=== PATIENT | female | born 1950 | race Caucasian/White ===

== ENCOUNTER 2021-01-29 07:25 | Outpatient (CLI) | payer OTHER | END 2021-01-29 12:58 | disposition home or self-care (01) | LOC: SONOGRAMA 07:25 | PROVIDERS: ATTEND Pathology Anatomic Pathology & Clinical Pathology | DX: E04.2 Nontoxic multinodular goiter (principal) ==

== ENCOUNTER 2022-09-20 06:25 | Day surgery (SDC) | payer OTHER | END 2022-09-20 14:30 | disposition home or self-care (01) | LOC: AMB-ENDOS 06:25 | PROVIDERS: ATTEND Surgery | DX: D12.5 Benign neoplasm of sigmoid colon (principal); D12.3 Benign neoplasm of transverse colon; K57.90 Diverticulosis of intestine, part unspecified, without perforation or abscess without bleeding; I10 Essential (primary) hypertension; Z88.6 Allergy status to analgesic agent; K64.8 Other hemorrhoids ==